=== PATIENT | male | born 1995 | race African-American/Black ===

== ENCOUNTER 2017-06-02 21:03 | Emergency (ER) | payer SELFPAY ==
[2017-06-02] MEDS ORDERED: TETANUS/DIPHTHERIA TOXOID [ADULT] 0.5 ML VIAL IM ONE (22:20)
[2017-06-02] MEDS ORDERED: IBUPROFEN 800 MG TAB ONE (23:59)
== END 2017-06-03 00:25 | disposition home or self-care (01) ==
LOC: EDH 21:03
DX: S93.491A Sprain of other ligament of right ankle, initial encounter (principal); S40.011A Contusion of right shoulder, initial encounter; V89.0XXA Person injured in unspecified motor-vehicle accident, nontraffic, initial encounter; Y93.53 Activity, golf; Y92.39 Other specified sports and athletic area as the place of occurrence of the external cause; Y99.8 Other external cause status
CPT/HCPCS: 70450; 72125; 73610; 73630; 90471; 90714